=== PATIENT | male | born 1995 | race Caucasian/White ===

== ENCOUNTER 2019-02-23 21:15 | Emergency (ER) | payer SELFPAY ==
--- NOTE | 2019-02-23 22:20 | ER Document Report ---
ED General - General Chief Complaint: Overdose Stated Complaint: OVERDOSE Time Seen by Provider: 02/23/19 21:28 Mode of Arrival: Ambulatory Information source: Patient Notes: This is a 24-year-old man who was brought in by EMS in the setting. Friends had called because they were worried about his respiratory status. He was given Narcan in the field by EMS and he had spoken to a psychologist over the phone that ordered him to come to the ER. He is currently alert and oriented x3 and without complaints. He denies any suicidal homicidal ideation. TRAVEL OUTSIDE OF THE [place] IN LAST 30 DAYS: No - HPI Onset: Just prior to arrival Onset/Duration: Sudden Quality of pain: No pain Severity: None Pain Level: Denies Associated symptoms: denies: Chest pain, Shortness of breath Exacerbated by: Denies Relieved by: Denies Similar symptoms previously: No Recently seen / treated by doctor: No - Related Data Allergies/Adverse Reactions: No Known Allergies Allergy (Verified 02/23/19 23:43) Past Medical History - General Information source: Patient, Emergency Med Personnel - Social History Smoking Status: Current Every Day Smoker Cigarette use (# per day): Yes - Half a pack per day Chew tobacco use (# tins/day): No Frequency of alcohol use: None Drug Abuse: Heroin Lives with: Spouse/Significant other Family History: None Patient has suicidal ideation: No Patient has homicidal ideation: No - Medical History Medical History: Negative Surgical Hx: Negative Review of Systems - Review of Systems Constitutional: denies: Chills, Fever EENT: No symptoms reported Cardiovascular: No symptoms reported Respiratory: No symptoms reported, Other - Patient does not remember the event Gastrointestinal: No symptoms reported Genitourinary: No symptoms reported Male Genitourinary: No symptoms reported Musculoskeletal: No symptoms reported Skin: No symptoms reported Hematologic/Lymphatic: No symptoms reported Neurological/Psychological: No symptoms reported Physical Exam - Vital signs Vitals: Resp Pulse Ox 12 95 02/23/19 21:19 02/23/19 21:19 Notes: Physical exam: GENERAL: Patient is alert and oriented x3, no acute distress HEAD: Atraumatic, normocephalic. EYES: Pupils equal round and reactive to light, extraocular movements intact, sclera anicteric, conjunctiva are normal. ENT: TMs normal, nares patent, oropharynx clear without exudates. Moist mucous membranes. NECK: Normal range of motion, supple without obvious mass or JVD. LUNGS: Breath sounds clear to auscultation bilaterally and equal. No wheezes rales or rhonchi. HEART: Regular rate and rhythm without murmurs, rubs or gallops. ABDOMEN: Soft, normoactive bowel sounds. No tenderness to palpation. No guarding, no rebound. No masses appreciated. EXTREMITIES: Normal range of motion, no pitting or edema. No clubbing or cyanosis. NEUROLOGICAL: Cranial nerves II through XII grossly intact. Normal speech, moving all extremities. PSYCH: Normal mood, normal affect. SKIN: Warm, Dry, normal turgor, no rashes or lesions noted. Course - Re-evaluation Re-evalutation: 02/23/19 23:47 Patient is alert and oriented x3 and answering questions appropriately. He is requesting to go home. He is competent to make his decisions at this time. - Vital Signs Vital signs: Temp Pulse Resp BP Pulse Ox 12 95 02/23/19 21:19 02/23/19 21:19 Discharge - Discharge Clinical Impression: Heroin overdose Condition: Stable Disposition: HOME, SELF-CARE Additional Instructions: As of 2017, the [place] Division of Public Health recommends the precription of Narcan (Naloxone) to patient's discharged after an opiod overdose. Naloxone is an injection that reverses the respiratory depression caused by opiates and is life-saving in many cases. Of course, it is recommended that you stop any narcotic or opiate use/abuse. However, if this is not possible, you should always carry the Naloxone with you and let family/friends know that you have this reversal antidote. Information on Naloxone can be found on: www.naloxonesaves.org Additionally: If you are using syringes with drug use, you should know that syringe exchange programs are effective in reducing the rates of HIV and Hepatitis C. Informat ion available for syring programs can be found at: www/ncdhhs.gov/divisions/public-health/wacjl-rapmymcz-tgcox-syringe-initiative/s xbbqx-ipxvulwm-qjkflqcx-cloudcroft Prescriptions: Naloxone HCl [Narcan] 4 mg NS ONCE PRN #1 spray PRN Reason:
[2019-02-24 00:36] VITALS: BP 128/82
== END 2019-02-24 00:36 | disposition home or self-care (01) ==
LOC: ER 21:15
DX: T40.1X1A Poisoning by heroin, accidental (unintentional), initial encounter (principal); F17.210 Nicotine dependence, cigarettes, uncomplicated; X58.XXXA Exposure to other specified factors, initial encounter
CPT/HCPCS: 99284